=== PATIENT | female | born 2000 | race Caucasian/White ===

== ENCOUNTER 2019-09-18 00:42 | Observation (INO) | payer BC ==
[2019-09-18] MEDS ORDERED: Acetaminophen 325 MG TAB PO PRN (01:49)
[2019-09-18] MEDS ORDERED: Calcium Carbonate 500 MG ChewTAB PO PRN (01:49)
[2019-09-18] MEDS ORDERED: Ondansetron PF 4 MG/2 ML Vial IVP PRN (01:49)
[2019-09-18 03:29] VITALS: BMI 28.2
[2019-09-18] MEDS: Sodium Chloride 0.9% 1,000 ML IV SCH ×3 (04:20→12:29)
[2019-09-18] MEDS: Ondansetron ODT 4 MG TAB PO PRN ×2 (06:13→12:33)
[2019-09-18] MEDS ORDERED: pyridOXINE 50 MG (B6) TAB PO SCH ×2 (07:00→21:00)
--- NOTE | 2019-09-18 07:46 | HP ---
CHIEF COMPLAINT: Nausea and vomiting. HISTORY OF PRESENT ILLNESS: The patient is a 19-year-old, G1, at 7 weeks gestation, admitted for inability to tolerate p.o. She reports that she was having significant nausea and vomiting yesterday and presented to the [facility]. There she received 4 L of fluids and her vomiting had improved, but she was tachycardic, so she was sent here. She remained mildly tachycardic in the low 100s and was placed on observation. She reports she has not had any vomiting overnight and just feels some pain with breathing, but denies any shortness of breath, chest pain, change in bowel habits/urination or other concerns. She has a new OB appointment scheduled with Dr. Martins in a week or two, but has not seen anybody yet for this . REVIEW OF SYSTEMS: Negative for head, eyes, ears, nose, throat, cardiovascular, respiratory, GI, , neuropsych, musculoskeletal, skin or constitutional symptoms other than mentioned above. PAST MEDICAL HISTORY: Chronic hypertension diagnosed about 2 months ago. She was placed on hydrochlorothiazide, but has not taken it in about a month. PAST SURGICAL HISTORY: None. ALLERGIES: NO KNOWN DRUG ALLERGIES. MEDICATIONS: None. SOCIAL HISTORY: Negative for tobacco, alcohol or drug abuse. FAMILY HISTORY: Significant only for heart disease and high blood pressure in her father. PHYSICAL EXAMINATION: VITAL SIGNS: Temperature 98.6, pulse 102, respiratory rate 20, blood pressure 130/69, and O2 saturation 99% on room air. GENERAL: Awake, alert, in no acute distress. CHEST: Nonlabored breathing. ABDOMEN: Soft, nontender to palpation. EXTREMITIES: No edema. LABORATORY DATA: WBC 13.5, hemoglobin 14.4, hematocrit 44.1, and platelets 321,000. Chemistry; AST 35, ALT 83, otherwise unremarkable. IMAGING DATA: Transvaginal ultrasound in the emergency department revealed a 7-week intrauterine per report. I am unable to read the report at this time. ASSESSMENT/PLAN: This is a 19-year-old, G1, at approximately 7 weeks gestation with nausea, vomiting, and . Vomiting has improved overnight after IV fluids. She has Zofran ordered as needed and will receive pyridoxine b.i.d. She has tolerated a small amount of water overnight, but just received her morning tray. We will see how she is able to tolerate her food, and if doing well later today, she can probably go home to follow up with Dr. Martins. Job ID: [id number]
--- NOTE | 2019-09-18 07:50 | ULT ---
OB ULTRASOUND: Date: 09/18/2019 HISTORY: Abdominal pain and early . Patient was admitted. Confirm intrauterine . TECHNIQUE: Multiplanar Williamson scale and color Doppler images were obtained in a transabdominal ultrasound. S pectral analysis of the Doppler waveforms of the ovaries were performed. FINDINGS: There is a single, live intrauterine with heart rate of 162 beats/minute. A yolk sac and fe li pole are seen. [place]-rump length of pole is 1.31 cm, which estimates gestational age at 7 w eeks 4 days. A small amount of free fluid is seen in the pelvis. Both ovaries are normal in size and appearance an d demonstrate normal internal flow. IMPRESSION: Single, live intrauterine with estimated gestational age of 7 weeks 4 days. POS: [facility]
[2019-09-18] MEDS ORDERED: Famotidine 20 MG TAB PO SCH (09:00)
[2019-09-18 09:08] VITALS: BP 136/76; TEMP 98.3
--- NOTE | 2019-09-19 06:15 | DIS ---
DATE OF ADMISSION: 09/18/2019 DATE OF DISCHARGE: 09/18/2019 ADMISSION DIAGNOSES: 1. Intrauterine at 7 weeks. 2. Nausea and vomiting. 3. Dehydration. DISCHARGE DIAGNOSES: 1. Intrauterine at 7 weeks. 2. Nausea and vomiting. 3. Dehydration. CONSULTATIONS: None. HOSPITAL COURSE: The patient is a 19-year-old G1 with an intrauterine at about 7 weeks, who has been having persistent nausea and vomiting at home. She was seen in the emergency room and transferred here for significant dehydration and was admitted to observation. She was placed on Zofran and pyridoxine on arrival and given IV hydration. This morning, the patient has been able to tolerate a diet. She is tolerating p.o. medications and has been well hydrated. The patient will be discharged to home with Diclegis to be taken as prescribed and Zofran p.r.n. for nausea and vomiting. She has also been given a description of the [id number] alternative to this prescription Diclegis depending on what option she prefers. The patient has appointment with Dr. Martins on the of the , which we have encouraged that she keep. She has been given instructions to return to the emergency room if she experiences persistent nausea and vomiting despite treatment and worsening dehydration. Job ID: [id number]
== END 2019-09-18 15:28 | disposition home or self-care (01) ==
LOC: ERS 00:42 → 3SW 01:57
PROVIDERS: ADMIT Obstetrics & Gynecology; ATTEND Obstetrics & Gynecology
DX: O99.281 Endocrine, nutritional and metabolic diseases complicating pregnancy, first trimester (principal); E86.0 Dehydration; O21.9 Vomiting of pregnancy, unspecified; O10.911 Unspecified pre-existing hypertension complicating pregnancy, first trimester; Z3A.01 Less than 8 weeks gestation of pregnancy
CPT/HCPCS: 36415; 76856; 84702; 96361; G0378; Q0162

== ENCOUNTER 2020-04-26 10:14 | Day surgery (SDC) | payer BC ==
[2020-04-26 10:53] VITALS: BP 142/101; TEMP 98.4; BMI 29.8
[2020-04-26] MEDS ORDERED: FLU VACC QS2020-21(6MOS UP)/PF 60 MCG/0.5 ML SYRINGE IM ONE (11:00)
[2020-04-26] MEDS ORDERED: hydrALAZINE 20 MG/ML VIAL SLOW IVP PRN (11:09)
--- NOTE | 2020-04-27 12:36 | PRG ---
DATE OF SERVICE: 04/26/2020 TIME OF SERVICE: 1300 hours. PRESENTING COMPLAINT: Contractions at 39 weeks' gestation. HISTORY OF PRESENT ILLNESS: Ms. Faria is a 20-year-old primigravida with EDC of 05/03 scheduled for induction of labor in 4 days, who presents complaining of contractions. She denies rupture of membranes, leakage of fluid. She denies vaginal bleeding. She reports complicated by mild chronic hypertension. GOVERNMENT AFFAIRS DIRECTOR HISTORY: Blood type B positive, antibody negative. Pap negative. Rubella immune. VDRL nonreactive. Hepatitis B, GC, chlamydia negative. Group B strep negative on 04/05. MEDICAL HISTORY: History of mildly elevated blood pressure. OB record indicates the patient was initiated on nifedipine 30 on 02/21. She was on hydrochlorothiazide prepregnancy. PAST SURGICAL HISTORY: Denies. ALLERGIES: DENIES. MEDICATIONS: vitamins and Procardia. SOCIAL HISTORY: Denies tobacco, alcohol, or IV drug use. FAMILY HISTORY: Noncontributory. REVIEW OF SYSTEMS: Noncontributory. PHYSICAL EXAMINATION: GENERAL: White female, in no acute distress. VITAL SIGNS: Initial blood pressure is 142/101, repeat blood pressures were 127/94 and 122/86, pulse 85, respirations 18, temperature 98.2. HEENT: Within normal limits. LUNGS: Clear to auscultation bilaterally. HEART: Regular rhythm. ABDOMEN: Soft, nontender. Occasional palpable indelible contractions. EXTREMITIES: Without clubbing, cyanosis, or edema. : Vulva without lesions. Vagina, cervix were 3, 50, -2, cephalic, blots of ease. LABORATORY DATA: monitoring was carried out for greater than 1 hour, which revealed active fetus category one tracing. Occasional contractions. Baseline 140s. The patient was rechecked in 2 hours. Blood pressures had lowered, and the patient denied headache or scotoma. Cervix was unchanged. IMPRESSION: 39 weeks' gestation with chronic hypertension. No evidence of severe gestational hypertension or preeclampsia with unchanged cervix. PLAN: Reassurance. Discharge home. Keep scheduled followup with Dr. Martins. Induction of labor in 4 days. ER precautions. Job ID: [id number]
== END 2020-04-26 13:05 | disposition home or self-care (01) ==
LOC: L&D/OP 10:14
PROVIDERS: ATTEND Obstetrics & Gynecology
DX: O47.1 False labor at or after 37 completed weeks of gestation (principal); O10.913 Unspecified pre-existing hypertension complicating pregnancy, third trimester; Z3A.39 39 weeks gestation of pregnancy; Z79.899 Other long term (current) drug therapy
CPT/HCPCS: 99283

== ENCOUNTER 2020-04-27 09:03 | Outpatient (CLI) | payer BC ==
[2020-04-27 17:57] LABS: SARS-CoV-2 MS2 Positive; SARS-CoV-2 N Gene Negative; SARS-CoV-2 S Gene Negative; SARS-CoV-2 by NAA Not Detected (NotDetected); SARS-CoV-2 orf1ab Negative
== END 2020-04-27 09:04 | disposition home or self-care (01) ==
LOC: LABBT 09:03
PROVIDERS: ATTEND Obstetrics & Gynecology
DX: Z01.812 Encounter for preprocedural laboratory examination (principal); Z20.828 Contact with and (suspected) exposure to other viral communicable diseases
CPT/HCPCS: 87635; U0003

== ENCOUNTER 2020-04-27 10:49 | Inpatient (IN) | payer BC ==
[2020-04-27 11:22] VITALS: BMI 29.8
[2020-04-27] MEDS ORDERED: Acetaminophen 500 MG TAB PO PRN (11:37)
[2020-04-27] MEDS ORDERED: Butorphanol Tartrate 1 MG/ML VIAL SLOW IVP PRN (11:37)
[2020-04-27] MEDS ORDERED: Misoprostol 200 MCG TAB PR PRN (11:37)
[2020-04-27] MEDS ORDERED: hydrALAZINE 20 MG/ML VIAL SLOW IVP PRN (11:37)
[2020-04-27] MEDS ORDERED: Ibuprofen 800 MG TAB PO PRN (11:37)
[2020-04-27] MEDS ORDERED: HYDROcodone/Acetaminophen 5/325 mg Tablet PO PRN ×2 (11:37)
[2020-04-27] MEDS ORDERED: NS / Oxytocin 40 units/1000ml 1,000 ML IV PRN (11:37)
[2020-04-27] MEDS ORDERED: Lidocaine 1% (PF) 30 ML VIAL SC PRN (11:37)
[2020-04-27] MEDS ORDERED: Ondansetron PF 4 MG/2 ML Vial IVP PRN ×2 (11:37→21:35)
[2020-04-27] MEDS ORDERED: Promethazine HCl 25 MG/ML VIAL IM PRN ×2 (11:37→21:35)
[2020-04-27] MEDS ORDERED: Carboprost 250 MCG/ML AMP IM PRN (11:37)
[2020-04-27] MEDS ORDERED: Diphenoxylate HCl/Atropine Tablet PO PRN ×2 (11:37)
[2020-04-27] MEDS ORDERED: NS w/ Oxytocin 10 units 500 ML IV SCH (11:45)
--- NOTE | 2020-04-27 11:48 | PDOC.LDHP ---
Labor and Delivery H&P Chief complaint: contractions, other (elevated BPs) HPI: 20 y/o G1 at 39w1d, patient of Dr. Martins, presents with regular ctx and elevated BPs at home. BP as high as 160 systolic at home. Denies PIH sx. Denies VB, LOF, or decreased FM. ROS neg for HEENT, cv, pulm, gi, gu, neuro, psych, skin, musculoskeletal or constitutional symptoms other than mentioned above. OB History Details: First Current complications: hypertension Past Medical History: CHTN Current medications: pre-anayeli vitamins, other (Procardia XL 30mg qd) Previous surgical history: none Allergies/Adverse Reactions: Allergies Allergy/AdvReac Type Severity Reaction Status Date / Time No Known Drug Allergies Allergy Verified 04/26/20 10:46 Social history: none - Physical Exam Vital signs reviewed and normal: yes Abnormal vital signs: mild range BPs General: NAD, resting Lungs: nonlabored breathing Abdomen: gravid Extremeties: no edema FHT: category 1 (150s, mod variability, + accels, no decels) [place] contractions every: 3-4 mins - Vaginal Exam cm dilated: 3 Effacement: 75% Station: -1 - Assessment L&D Assessment: medically indicated induction (elevated BPs at term) - Plan Plan: admit to L&D, labor augmentation if indicated, informed consent obtained, anesthesia consult for pain management -: Tx BPs with antihypertensives and/or mag if indicated. Dr. Martins notified
[2020-04-27 13:45] LABS: Hemoglobin 12.8 g/dL (12.0-16.0); Mean Corpuscular HGB CONC 33.9 g/dL (32.0-36.0); Mean Corpuscular Hemoglobin 31.7 pg (27.0-31.0); Mean Corpuscular Volume 93.3 fL (78.0-98.0); Mean Platelet Volume 9.4 fL (7.4-10.4); Platelet Count 235 thou/uL (130-400); RBC Distribution Width 12.3 % (11.5-14.5); Red Blood Cell (RBC) Count 4.06 mill/uL (4.20-5.40); White Blood Cell (WBC) Count 11.7 thou/uL (4.8-10.8)
[2020-04-27] MEDS ORDERED: Bupivacaine/Epinephrine 0.25% 30 ML VIAL ONE (14:07)
[2020-04-27 14:38] LABS: HBSAg Index 0.42 S/CO (0-0.99); Hep B Surf Ag Non-Reactive S/CO (NonReactive); Syphilis Antibody Nonreactive (Nonreactive); Syphilis Antibody Index 0.03 S/CO (<1.00 Non-Reactive)
[2020-04-27] MEDS: Lactated Ringer's 1,000 ML IV SCH (17:38)
[2020-04-27] MEDS ORDERED: Fentanyl 4 mcg/Bup 0.1% Cadd 100 ML in Premix Bag 1 BAG EPIDURAL SCH (19:30)
[2020-04-27] MEDS ORDERED: Lactated Ringer's 500 ML IV PRN (21:35)
[2020-04-27] MEDS ORDERED: Acetaminophen 325 MG TAB PO PRN (21:35)
[2020-04-27] MEDS ORDERED: Naloxone HCl 0.4 mg/ml Vial IVP PRN ×2 (21:35)
[2020-04-27] MEDS ORDERED: diphenhydrAMINE 50 MG/ML VIAL IVP PRN (21:35)
[2020-04-27] MEDS ORDERED: ePHEDrine 50 MG/ML VIAL SLOW IVP PRN (21:35)
[2020-04-27] MEDS ORDERED: Communication Order-Pharmacy FS SCH (21:45)
[2020-04-27] MEDS ORDERED: Fentanyl 4 mcg/Bupivacaine 0.1% Cassette 100 ML EPIDURAL SCH (21:45)
[2020-04-28] MEDS ORDERED: Promethazine HCl 25 MG/ML VIAL IM PRN (02:08)
[2020-04-28] MEDS ORDERED: NS / Oxytocin 40 units/1000ml 1,000 ML IV SCH (02:08)
[2020-04-28] MEDS ORDERED: Milk Of Magnesia 30 ML UDCUP PO PRN (02:08)
[2020-04-28] MEDS ORDERED: diphenhydrAMINE 25 MG CAP PO PRN (02:08)
[2020-04-28] MEDS ORDERED: hydrALAZINE 20 MG/ML VIAL SLOW IVP PRN (02:08)
[2020-04-28] MEDS ORDERED: Measles/Mumps/Rubella 10 MCG/0.5 ML VIAL SC ONE (02:08)
[2020-04-28] MEDS ORDERED: Varicella virus, LIVE 0.5 ML VIAL SC ONE (02:08)
[2020-04-28] MEDS ORDERED: Bisacodyl 10 MG SUPP PR PRN (02:08)
[2020-04-28] MEDS ORDERED: Misoprostol 200 MCG TAB VAG PRN (02:08)
[2020-04-28] MEDS ORDERED: HYDROcodone/Acetaminophen 5/325 mg Tablet PO PRN ×2 (02:08)
[2020-04-28] MEDS ORDERED: Benzocaine-Menthol 82.5 ML CAN TOP PRN (02:08)
[2020-04-28] MEDS ORDERED: Preparation H Ointment 28 GM TUBE PR PRN (02:08)
[2020-04-28] MEDS ORDERED: Ondansetron PF 4 MG/2 ML Vial IVP PRN (02:08)
[2020-04-28] MEDS ORDERED: Lanolin Ointment 7 GM TUBE TOP PRN (02:08)
[2020-04-28] MEDS ORDERED: Zolpidem Tartrate 5 MG TAB PO PRN (02:08)
[2020-04-28] MEDS: Ibuprofen 800 MG TAB PO SCH ×3 (03:31→21:36)
[2020-04-28] MEDS: Lactated Ringer's 1,000 ML IV SCH (07:45)
[2020-04-28] MEDS: Ferrous Sulfate 325 MG TAB PO SCH (08:12)
[2020-04-28] MEDS: Prenatal Vitamin 1 TAB PO SCH (08:13)
[2020-04-28] MEDS: Docusate Calcium (SURFAK) 240 MG CAP PO SCH ×2 (08:13→21:36)
[2020-04-28] MEDS ORDERED: Adacel (T-DAP) 0.5 ML SYRINGE IM ONE (09:00)
[2020-04-28] MEDS ORDERED: FLU VACC QS2020-21(6MOS UP)/PF 60 MCG/0.5 ML SYRINGE IM ONE (11:45)
[2020-04-28 13:36] LABS: Hemoglobin 12.3 g/dL (12.0-16.0); Mean Corpuscular HGB CONC 33.8 g/dL (32.0-36.0); Mean Corpuscular Hemoglobin 31.8 pg (27.0-31.0); Mean Corpuscular Volume 93.9 fL (78.0-98.0); Mean Platelet Volume 9.7 fL (7.4-10.4); Platelet Count 204 thou/uL (130-400); RBC Distribution Width 12.4 % (11.5-14.5); Red Blood Cell (RBC) Count 3.87 mill/uL (4.20-5.40); White Blood Cell (WBC) Count 13.3 thou/uL (4.8-10.8)
[2020-04-29] MEDS: Ibuprofen 800 MG TAB PO SCH ×2 (05:38→06:43)
[2020-04-29] MEDS: Prenatal Vitamin 1 TAB PO SCH (09:08)
[2020-04-29] MEDS: Docusate Calcium (SURFAK) 240 MG CAP PO SCH (09:08)
[2020-04-29] MEDS: Ferrous Sulfate 325 MG TAB PO SCH (09:10)
--- NOTE | 2020-04-29 09:28 | PDOC.PP ---
Post Progress Note Post Day #: 1 PO intake tolerated: yes Vital Signs (12 hours) Temp Pulse Resp BP 04/29/20 04:00 98.3 F 68 18 124/68 Weight Weight 185 lb - Physical Examination General: NAD Cardiovascular: no m/r/g, RRR Respiratory: clear to auscultation bilaterally, non-labored breathing Abdominal: + bowel sounds, lochia, no distention, appropriately TTP Extremities: negative homans (B) Neurological: no gross focal deficits Psychiatric: A&Ox3, normal affect (DC home planned tomorrow.) Result Diagrams: 04/28/20 13:08 Additional Labs: Post Labs Hep Bs Antigen Non-Reactive S/CO (NonReactive) 04/27/20 13:36 Blood Type B POSITIVE 04/27/20 14:19
[2020-04-29 09:30] VITALS: BP 130/79; TEMP 98
--- NOTE | 2020-04-30 06:42 | DN ---
DATE OF PROCEDURE: 04/27/2020 TIME OF SERVICE: At 2331 hours central standard time. PREOPERATIVE DIAGNOSIS: Intrauterine at 39 weeks and 1 day with an augmentation of labor. POSTOPERATIVE DIAGNOSIS: Intrauterine at 39 weeks and 1 day with an augmentation of labor. PROCEDURE PERFORMED: Spontaneous vaginal delivery over first-degree laceration of the perineum as well as a left periurethral laceration. FINDINGS: Viable female infant weighing 3026 g or 6 pounds 11 ounces, Apgars 8 and 9. QUANTITATIVE BLOOD LOSS: 238 mL. COMPLICATIONS: None. PROCEDURE IN DETAIL: The patient presented to [facility] where she was admitted to the labor and delivery service. The patient underwent a normal and uneventful labor with normal cervical dilatation until she was found to be completely dilated. She was then allowed to push and was able to bring the baby down and delivered the baby in a vertex presentation without difficulties. Once the head delivered in occiput anterior position, the shoulders followed spontaneously along with the rest of the baby's body. Once out the baby's mouth and nose were bulb suctioned. The cord was clamped and cut and baby was handed to waiting attendants. Cord blood was collected. Gentle fundal massage was performed and the placenta delivered intact without problems. Hemostasis was assured. Quantitative blood loss was calculated. Inspection of the cervix, vaginal vault, and perineum did not reveal any lacerations needing suturing. Once again, hemostasis was within normal limits and the patient was allowed to recover in the labor and delivery room. Baby went to nursery. Job ID: [id number]
== END 2020-04-29 11:10 | disposition home or self-care (01) | DRG 807 ==
LOC: L&D/OP 10:49 → L&D 11:37 → 3SW 04-28 02:35
PROVIDERS: ADMIT Obstetrics & Gynecology; ATTEND Obstetrics & Gynecology
PROC: 10E0XZZ Delivery of Products of Conception, External Approach (ICD-10-PCS; principal; 2020-04-27)
PROC: 0HQ9XZZ Repair Perineum Skin, External Approach (ICD-10-PCS; 2020-04-27)
PROC: 0UQMXZZ Repair Vulva, External Approach (ICD-10-PCS; 2020-04-27)
DX: O10.92 Unspecified pre-existing hypertension complicating childbirth (principal); Z37.0 Single live birth; Z3A.39 39 weeks gestation of pregnancy; O70.0 First degree perineal laceration during delivery; O71.82 Other specified trauma to perineum and vulva
CPT/HCPCS: 36415; 51702; 85027; 86780; 86850; 86900; 86901; 87340; 87635; 90471; 90662; 99283; 99285; G0008; J2405; J2590; U0003